=== PATIENT | male | born 1955 | race Caucasian/White ===

== ENCOUNTER 2024-11-12 21:17 | Emergency (ER) | payer OTHER ==
[2024-11-12 21:24] VITALS: TEMP 97.7; BMI 33.2
[2024-11-12] MEDS ORDERED: ACETAMINOPHEN INJECTION 100 ML ONE (21:41)
[2024-11-12] MEDS ORDERED: ONDANSETRON 4 MG/2 ML VIAL ONE (21:41)
[2024-11-12] MEDS: ONDANSETRON 4 MG/2 ML VIAL IVPUSH ONE (21:51)
[2024-11-12] MEDS: ACETAMINOPHEN 1000 MG/100 ML BAG IVPB ONE (21:51)
[2024-11-12 22:02] LABS: ABSOLUTE IMMATURE GRANULOCYTES 0.03 x10^3/uL (0.0-0.031); BASOPHILS # 0.04 x10^3/uL (0.01-0.08); EOSINOPHIL % 1.8 % (0.8-7.0); EOSINOPHILS # 0.15 x10^3/uL (0.04-0.54); HEMATOCRIT 31.7 % (40.1-51.0); HEMOGLOBIN 8.9 g/dL (13.7-17.5); MCHC 28.1 g/dl (32.3-36.5); MEAN CELL VOLUME 66.7 fl (79.0-92.2); MEAN PLT VOLUME 9.5 fl (9.4-12.4); MONOCYTE # 0.78 x10^3/uL (0.30-0.82); MONOCYTE % 9.1 % (5.3-12.2); PLATELET COUNT 332 x10^3/uL (163-337); RDW 18.3 % (12.2-16.4)
[2024-11-12 22:24] LABS: POTASSIUM 4.2 mmol/L (3.5-5.1)
[2024-11-12 22:27] LABS: BLOOD UREA NITROGEN 26.8 mg/dL (7-18); CALCIUM 9.7 mg/dL (8.5-10.1)
[2024-11-12 22:30] LABS: CREATININE 1.1 mg/dL (0.55-1.3)
[2024-11-12 22:32] LABS: BILIRUBIN,TOTAL 0.4 mg/dL (0.2-1); TOT PROT 7.1 g/dl (6.4-8.2)
[2024-11-12] MEDS: SODIUM CHLORIDE 0.9% 500 ML INFUS.BAG IV ONE (22:41)
[2024-11-12 23:34] VITALS: BP 110/65; PULSE 65; RESP 19
== END 2024-11-12 23:40 | disposition home or self-care (01) ==
LOC: JER 21:17
PROC: 3E033NZ Introduction of Analgesics, Hypnotics, Sedatives into Peripheral Vein, Percutaneous Approach (ICD-10-PCS; principal; 2024-11-12)
PROC: 3E033GC Introduction of Other Therapeutic Substance into Peripheral Vein, Percutaneous Approach (ICD-10-PCS; 2024-11-12)
DX: R42 Dizziness and giddiness (principal); R00.1 Bradycardia, unspecified; R11.0 Nausea; R07.89 Other chest pain; T59.3X3A Toxic effect of lacrimogenic gas, assault, initial encounter
CPT/HCPCS: 0241U-QW; 36415; 70450-TC; 71045-TC-FY; 80053; 83735; 84484; 85025; 93005; 93010; 99285-25